=== PATIENT | female | born 1925 | race Two or more races ===

== ENCOUNTER 2017-01-16 20:15 | Emergency (ER) | payer MEDICARE ==
--- NOTE | ~2017-01-16 | ER ---
PATIENT'S NAME: MAYANK RIVERA [facility] AGE: 89 Y [address] ROOM: [place] [address] LOCATION: [facility] ADMIT DATE: 01/16/2017 ER/Outpatient Report DISCHARGE DATE: 01/16/2017 FAMILY PHYSICIAN: Physician, Unknown ATTENDING PHYSICIAN: Coleman Sifuentes CHIEF COMPLAINT: Abdominal pain. HISTORY OF PRESENT ILLNESS: The patient arrives by ambulance for abdominal pain from [place]. Contact with the facility reveals that she has had abdominal pain for the last 3 days. No detectable change since onset. Today, she was saying that it hurt a little more than normal. She has had multiple bowel movements including one just before EMS arrival. No medications have been given. The patient has a history of significant dementia. Her brother, who accompanies her today, stated that she was at baseline. No significant other findings. The patient cannot give any further history. PAST MEDICAL HISTORY: Documented on the record and reviewed by me. SOCIAL HISTORY: Documented on the record and reviewed by me. MEDICATIONS: Documented on the record and reviewed by me. ALLERGIES: DOCUMENTED ON THE RECORD AND REVIEWED BY ME. REVIEW OF SYSTEMS: Obtained chiefly from the record, the facility, EMS, and the brother, although the patient was interviewed. No other pertinent positives. PHYSICAL EXAMINATION: VITAL SIGNS: Blood pressure 154/87, pulse is 67, respiratory rate is 16, temperature 98.9, SpO2 is 95% on room air. Pain is not appreciated. GENERAL: Age appropriate female, in no obvious pain or distress, resting comfortably on the exam table. NEUROLOGICAL: The patient is awake, she is not oriented to person, she is alert. No obvious asymmetry or focal deficits. HEENT: Normocephalic, atraumatic. Eyes are PERRL. Oropharynx is clear. NECK: Supple. Trachea is midline. CHEST: Heart is regular rate and rhythm with no murmurs. PATIENT'S NAME: MAYANK RIVERA [facility] AGE: 89 Y [address] ROOM: [place] [address] LOCATION: [facility] ADMIT DATE: 01/16/2017 ER/Outpatient Report DISCHARGE DATE: 01/16/2017 FAMILY PHYSICIAN: Physician, Unknown ATTENDING PHYSICIAN: Coleman Sifuentes LUNGS: Clear to auscultation bilaterally. No rhonchi, wheezes, or rales. ABDOMEN: Soft, nondistended, bowel sounds are present. No focal tenderness, no rebound, no guarding. A totally benign exam. Unchanged on repeat exam. BACK: Normal to inspection and palpation. EXTREMITIES: Warm and well perfused. SKIN: Warm, dry, and intact. LABORATORY DATA AND X-RAYS: Plain films of the abdomen were obtained with no obvious abnormalities. IMPRESSION: Reports of abdominal pain. EMERGENCY DEPARTMENT COURSE: The patient was seen and evaluated. The patient does appear to be at her baseline. There are no significant findings on her current presentation. Based on the duration, I do not think she warrants further evaluation or higher level imaging or labs at this time. She was given Bentyl with mild improvement in her symptoms. She should follow up with her primary care provider in the next few days. She was discharged to the care of her brother. MD JOHN CHAVEZ/jj /[id number] d: 01/17/17716 t: 01/26/17 0904, OUTPATIENT REPORT
== END 2017-01-16 22:43 | disposition disaster alternative care site (69) ==
LOC: GMED 20:15
DX: R10.9 Unspecified abdominal pain (principal)
CPT/HCPCS: J0500

== ENCOUNTER → 2017-01-16 | Outpatient (CLI) | payer MEDICARE | END | disposition disaster alternative care site (69) | LOC: GAMB 19:52 | DX: R10.84 Generalized abdominal pain (principal); F03.90 Unspecified dementia, unspecified severity, without behavioral disturbance, psychotic disturbance, mood disturbance, and anxiety; Z79.82 Long term (current) use of aspirin; Z79.899 Other long term (current) drug therapy | CPT/HCPCS: A0425; A0427 ==